=== PATIENT | female | born 1965 | race Caucasian/White ===

== ENCOUNTER 2017-01-30 21:06 | Emergency (ER) | payer SELFPAY ==
[~2017-01-30] VITALS: Ht 167.6 cm; Wt 101.0 kg
[~2017-01-30 21:06] MED LIST: AMBIEN10 M1 PO; ATIVAN1 MG PO; Ativan PO; DESYREL100 MG PO; DESYREL300 MG PO; FLOVENT; LATUDA80 MG PO; LORAZEPAM2 MG PO; PERCOCET 5/31 TABLET PO; PROVENTIL,200 INHALA IH; PROZAC20 M1 PO; PROZAC40 MG PO; Proventil,Ventolin H IH; VIIBRYD40 MG PO; Viibryd PO
[2017-01-30 21:15] VITALS: BP 133/85
== END 2017-01-30 23:11 | disposition left against medical advice (07) ==
LOC: EME 21:06
DX: R10.13 Epigastric pain (principal); Z53.21 Procedure and treatment not carried out due to patient leaving prior to being seen by health care provider
CPT/HCPCS: 80053; 81003; 84484; 85027; 93005

== ENCOUNTER 2017-03-22 13:38 | Observation (INO) | payer OTHER ==
[~2017-03-22] VITALS: Ht 167.6 cm; Wt 95.2 kg
[2017-03-22 14:05] LABS: EOSINOPHIL (%) 0.8 % (0-5); EOSINOPHIL COUNT 0.1 K/uL (0-0.3); HEMATOCRIT 42.6 % (36.0-46.0); IMMATURE GRANULOCYTE (%) 0.4 % (0.0-0.7); INSTRUMENT ABS NEUTROPHIL CT 6.6 K/uL; LYMPHOCYTE COUNT 3.2 K/uL (1.0-2.8); MCH 26.6 PG (29.0-34.0); MCHC 33.3 G/DL (30.0-36.0); MCV 79.9 FL (83-99); MEAN PLAT.VOLUME 11.3 uM^3 (9.5-12.4); MONOCYTE (%) 5.3 % (3-12); MONOCYTE COUNT 0.6 K/uL (0-0.8); NEUTROPHIL (%) 62.4 % (45-76); NEUTROPHIL COUNT 6.6 K/uL (1.8-6.4); PLATELET COUNT 276 K/uL (156-360); RBC DIS.WIDTH-CV 14.6 % (11.8-14.6); RBC DIS.WIDTH-SD 42.5 % (39-53); RED BLOOD COUNT 5.33 M/uL (3.80-5.20); WHITE BLOOD COUNT 10.5 K/uL (4.1-10.2)
[2017-03-22 14:09] LABS: PROTHROMBIN TIME 10.7 SEC (10.2-12.9)
[2017-03-22 14:14] LABS: CHLORIDE 107 mEq/L (99-109); POTASSIUM 4.4 mEq/L (3.7-5.4); SODIUM 135 mEq/L (136-147)
[2017-03-22 14:16] LABS: GLUCOSE 86 mg/dL (70-99)
[2017-03-22 14:17] LABS: ANION GAP 9 MEQ/L (2-14)
[2017-03-22 14:18] LABS: TOTAL BILIRUBIN 0.4 mg/dL (0.0-1.0)
[2017-03-22 14:19] LABS: ALKALINE PHOSPHATASE 110 IU/L (3-129)
[2017-03-22 14:20] LABS: GFR ESTIMATE (CALCULATED) > 59 mL/min/
[2017-03-22 14:21] LABS: UREA NITROGEN (BUN) 6 mg/dL (9-23)
[2017-03-22 14:34] LABS: TROP-I INTERPRETATION NEGATIVE; TROPONIN-I < 0.01 ng/mL (0.0-0.30)
[2017-03-22] MEDS ORDERED: PRAZOSIN HCL1 MG PO (15:47)
[2017-03-22] MEDS ORDERED: HYDROXYZINE PAM25 MG PO ×2 (15:48→17:05)
[2017-03-22] MEDS ORDERED: OXCARBAZEPINE300 MG PO (15:49)
[2017-03-22] MEDS ORDERED: SERTRALINE HCL50 MG PO (15:50)
[2017-03-22] MEDS ORDERED: BUTALB-APAP-CA1 EACH PO (15:51)
[2017-03-22 15:54] LABS: LIPASE 12 U/L (1.0-51.0)
[2017-03-22] MEDS ORDERED: IBUPROFEN800 MG PO (17:05)
[2017-03-22] MEDS ORDERED: HYOSCYAMINE0.125 MG PO (17:06)
[2017-03-22] MEDS ORDERED: PROMETHAZINE HC25 M1 PO (17:06)
[2017-03-22 18:14] VITALS: BP 109/55
[2017-03-22 19:30] VITALS: BP 100/53
[2017-03-22 21:20] LABS: TROP-I INTERPRETATION NEGATIVE; TROPONIN-I < 0.01 ng/mL (0.0-0.30)
[2017-03-23 00:42] VITALS: BP 92/56
[2017-03-23 02:15] LABS: TROP-I INTERPRETATION NEGATIVE; TROPONIN-I < 0.01 ng/mL (0.0-0.30)
[2017-03-23 04:02] VITALS: BP 105/56
[2017-03-23 07:19] VITALS: BP 104/56
[2017-03-23 11:13] VITALS: BP 106/56
[2017-03-23 15:36] VITALS: BP 87/54
[2017-03-23 19:26] VITALS: BP 114/53
[2017-03-24 00:05] VITALS: BP 98/55
[2017-03-24 03:17] VITALS: BP 100/52
[2017-03-24 06:25] LABS: MCH 28.2 PG (29.0-34.0); MCHC 33.8 G/DL (30.0-36.0); MCV 83.5 FL (83-99); MEAN PLAT.VOLUME 11.3 uM^3 (9.5-12.4); PLATELET COUNT 235 K/uL (156-360); RBC DIS.WIDTH-CV 14.9 % (11.8-14.6); RBC DIS.WIDTH-SD 45.4 % (39-53); RED BLOOD COUNT 4.43 M/uL (3.80-5.20); WHITE BLOOD COUNT 7.7 K/uL (4.1-10.2)
[2017-03-24 07:30] VITALS: BP 114/61
[2017-03-24 11:14] VITALS: BP 114/61
[2017-03-24 11:21] VITALS: BP 114/61
[2017-03-24] MEDS ORDERED: PROTONIX40 MG PO (14:33)
== END 2017-03-24 16:14 | disposition home or self-care (01) ==
LOC: EME 13:38 → EDOF 17:11 → 5WEST 17:11 → EDOF 17:11 → ENRESERV 17:20 → 5WEST 18:08
PROVIDERS: Emergency Medicine; Internal Medicine; Surgery
DX: R10.13 Epigastric pain (principal); R07.9 Chest pain, unspecified; Q45.3 Other congenital malformations of pancreas and pancreatic duct; G89.29 Other chronic pain; K58.9 Irritable bowel syndrome, unspecified; J44.9 Chronic obstructive pulmonary disease, unspecified; Z85.41 Personal history of malignant neoplasm of cervix uteri; Z90.710 Acquired absence of both cervix and uterus; Z90.49 Acquired absence of other specified parts of digestive tract; R55 Syncope and collapse; F17.210 Nicotine dependence, cigarettes, uncomplicated; Z90.79 Acquired absence of other genital organ(s); Z90.722 Acquired absence of ovaries, bilateral; Z87.19 Personal history of other diseases of the digestive system; I27.20 Pulmonary hypertension, unspecified; Z88.0 Allergy status to penicillin; Z88.5 Allergy status to narcotic agent; Z88.7 Allergy status to serum and vaccine; Z88.8 Allergy status to other drugs, medicaments and biological substances
CPT/HCPCS: 70450; 71275; 74020; 74174; 80053; 83690; 84484; 85025; 85027; 85610; 93005; 93306; 93880; 99202; 99281; 99285; C9113; G0378; J2270; J2405; J3010; J3030; J7030; Q0177